=== PATIENT | male | born 2000 ===

== ENCOUNTER → 2020-09-11 | Outpatient (REF) ==
--- NOTE | 2020-09-11 13:48 | REPPI ---
INDICATION: DDD COMPARISON: None. TECHNIQUE: AP, lateral, bilateral oblique views right hand. FINDINGS: The osseous structures and joint spaces are intact and there is no evidence for acute fracture or dislocation. Old boxer's fracture of the 5th metacarpal bone noted. Surrounding soft tissues are unremarkable. No subcutaneous emphysema or radiodense foreign body. IMPRESSION: . No acute fracture or dislocation. <Electronically signed by Scott Salcedo > 09/11/20 [id number]
== END ==
LOC: M PLAIMG 08:35
PROVIDERS: ATTEND Internal Medicine
DX: Z02.71 Encounter for disability determination (principal)